=== PATIENT | female | born 1940 | race Caucasian/White ===

== ENCOUNTER 2018-01-23 07:30 | Outpatient (CLI) | payer OTHER | END 2018-01-23 07:33 | disposition home or self-care (01) | LOC: SONOGRAMA 07:30 | DX: R22.2 Localized swelling, mass and lump, trunk (principal) ==

== ENCOUNTER 2018-01-27 06:09 | Emergency (ER) | payer OTHER ==
[~2018-01-27] VITALS: Ht 152.4 cm; Wt 61.2 kg
== END 2018-01-27 17:48 | disposition designated cancer center or children's hospital (05) ==
LOC: ER 06:09
DX: C94.80 Other specified leukemias not having achieved remission (principal); D50.0 Iron deficiency anemia secondary to blood loss (chronic); N39.0 Urinary tract infection, site not specified; R06.02 Shortness of breath; E11.9 Type 2 diabetes mellitus without complications; M25.551 Pain in right hip; M54.5 Low back pain

== ENCOUNTER 2018-08-15 13:23 | Emergency (ER) | payer OTHER ==
[~2018-08-15] VITALS: Ht 162.6 cm; Wt 56.7 kg
[2018-08-15] MEDS ORDERED: TENORMIN100 M1 PO (13:52)
[2018-08-15] MEDS ORDERED: VENCLEXTA100 MG PO (13:52)
[2018-08-15] MEDS ORDERED: SYNTHROID88 MCG PO (13:53)
== END 2018-08-16 08:50 | disposition home or self-care (01) ==
LOC: ER 13:23
DX: D69.49 Other primary thrombocytopenia (principal)

== ENCOUNTER 2018-08-25 15:37 | Emergency (ER) | payer OTHER ==
[~2018-08-25] VITALS: Ht 162.6 cm; Wt 54.9 kg
[~2018-08-25 15:37] MED LIST: SYNTHROID88 MCG PO; TENORMIN100 M1 PO; VENCLEXTA100 MG PO
[2018-08-25] MEDS ORDERED: VIDAZA100 MG IJ (15:58)
== END 2018-08-26 10:33 | disposition home or self-care (01) ==
LOC: ER 15:37
DX: C92.00 Acute myeloblastic leukemia, not having achieved remission (principal); D69.49 Other primary thrombocytopenia

== ENCOUNTER 2018-09-13 13:50 | Emergency (ER) | payer OTHER ==
[~2018-09-13] VITALS: Ht 160 cm; Wt 55.3 kg
[~2018-09-13 13:50] MED LIST changes: +VIDAZA100 MG IJ
== END 2018-09-14 11:20 | disposition home or self-care (01) ==
LOC: ER 13:50
DX: D69.49 Other primary thrombocytopenia (principal); C92.00 Acute myeloblastic leukemia, not having achieved remission; R06.02 Shortness of breath; R00.0 Tachycardia, unspecified

== ENCOUNTER 2018-09-22 21:20 | Emergency (ER) | payer OTHER ==
[~2018-09-22] VITALS: Ht 162.6 cm; Wt 54.9 kg
== END 2018-09-23 22:22 | disposition home or self-care (01) ==
LOC: ER 21:20
DX: D69.49 Other primary thrombocytopenia (principal); C92.00 Acute myeloblastic leukemia, not having achieved remission